=== PATIENT | male | born 1990 | race Caucasian/White ===

== ENCOUNTER 2019-03-19 01:36 | Emergency (ER) | payer SELFPAY ==
[~2019-03-19] VITALS: Ht 177.8 cm; Wt 99.8 kg
[2019-03-19 01:40] VITALS: BP 138/80
--- NOTE | 2019-03-19 01:40 | NUR ---
TO BED # 08 AMBULATORY
--- NOTE | 2019-03-19 01:40 | NUR ---
29 Y/O MALE PRESENTS TO ED WITH C/O LEFT LOWER JAW MOLAR PAIN, 8/10 X3 DAYS. PT STATES HE CANNOT TAKE THE PAIN ANY LONGER. HE USED OROGEL TO REDUCE PAIN BUT PAIN UNRELIEVED. AFEBRILE WITH VSS. INSIDE MOUTH, NO EDEMA, REDNESS, OR DRAINAGE NOTED. POSITIONED IN BED FOR COMFORT. ER MD AWARE. CONTINUE TO MONITOR.
--- NOTE | 2019-03-19 01:48 | NUR ---
Dr. Hsu examining patient.
[2019-03-19] MEDS ORDERED: AMOXICILLIN 500 MG CAP PO ONE (01:50)
[2019-03-19] MEDS ORDERED: KETOROLAC 60 MG/2 ML VIAL IM ONE (01:50)
[2019-03-19 02:41] VITALS: BP 138/80
--- NOTE | 2019-03-19 02:41 | NUR ---
DISCHARGE PAPERS GIVEN TO PT. PT STATES PAIN RELIEVED. RX OF AMOXICILLIN, TRAMADOL, AND MOTRIN GIVEN. SIDE EFFECTS EXPLAINED. INSTRUCTED TO F/U WITH DENTIST AND WHEN TO RETURN TO ER. PT VERBALLIZED UNDERSTANDING OF DC INSTRUCTIONS. ALL QUESTIONS ANSWERED.
== END 2019-03-19 02:41 | disposition home or self-care (01) ==
LOC: MED 01:36
DX: K04.7 Periapical abscess without sinus (principal)
CPT/HCPCS: 96372; 99283; J1885

== ENCOUNTER 2019-04-13 06:24 | Emergency (ER) | payer SELFPAY ==
[~2019-04-13] VITALS: Ht 172.7 cm; Wt 90.7 kg
--- NOTE | 2019-04-13 06:29 | NUR ---
PT AMBULATED TO BED #2
[2019-04-13 06:32] VITALS: BP 143/78
--- NOTE | 2019-04-13 06:40 | NUR ---
29 YO M BIB SELF PRESENTS TO ED C/O 07/12 RIGHT LOWER MOLAR PAIN X 4 DAYS. PT STATES HE WENT TO DENTIST AND WAS TOLD TOOTH NEEDS TO BE EXTRACTED. PT HAS APPOINTMENT ON TUESDAY BUT CANNOT CONTROL THE PAIN AT HOME. -- PT AWAKE, ALERT, CALM, COOPERATIVE. ANSWERS QUESTIONS APPROPRIATELY. BEHAVIOR AGE APPROPRIATE. -- SKIN WARM, DRY, INTACT. BREATHING EVEN, UNLABORED. PMH-- DENIES RX-- IBUPROFEN X 1 HOUR AGO
--- NOTE | 2019-04-13 07:08 | NUR ---
REPORT GIVEN TO ANGELITO KRISHNAN. TRANSFER OF CARE AT THIS TIME.
--- NOTE | 2019-04-13 07:10 | NUR ---
RECEIVED REPORT FROM PACKER DRIED BEEF RN. PT ELADIA IN BED. A/O X4. BREATHING NORMALLY. VSS. STATES TOOTHACHE OF 07/12.
--- NOTE | 2019-04-13 07:40 | NUR ---
Dr. Najera evaluating patient at bedside.
[2019-04-13] MEDS ORDERED: KETOROLAC 60 MG/2 ML VIAL IM ONE (07:45)
[2019-04-13 08:21] VITALS: BP 134/81
--- NOTE | 2019-04-13 08:21 | NUR ---
DISCHARGE INSTRUTIONS PROVIDED BY [facility].
== END 2019-04-13 08:21 | disposition home or self-care (01) ==
LOC: MED 06:24
DX: K08.89 Other specified disorders of teeth and supporting structures (principal)
CPT/HCPCS: 96372; 99283; J1885

== ENCOUNTER 2023-05-27 11:20 | Emergency (ER) | payer SELFPAY ==
[~2023-05-27] VITALS: Ht 180.3 cm; Wt 103.4 kg
[2023-05-27 11:26] VITALS: BP 114/82; PULSE 95; RESP 18; TEMP 97.7; O2SAT 99
[2023-05-27 11:58] LABS: BASOPHILS # (AUTO) 0.1 K/uL (0.00-0.22); BASOPHILS % (AUTO) 0.7 % (0.0-2.0); EOSINOPHILS % (AUTO) 0.1 % (0.0-4.0); HEMATOCRIT 28.1 % (36-52); HEMOGLOBIN 8.4 g/dL (12.0-18.0); LYMPHOCYTES # (AUTO) 1.3 K/uL (2.0-11.5); LYMPHOCYTES % (AUTO) 14.6 % (20.5-51.1); MEAN CORPUSCULAR HEMOGLOBIN 18 pg (27-31); MEAN CORPUSCULAR HGB CONC 30 g/dL (33-37); MEAN CORPUSCULAR VOLUME 61.3 fL (80-94); MONOCYTES # (AUTO) 0.5 K/uL (0.8-1.0); MONOCYTES % (AUTO) 5.9 % (1.7-9.3); NEUTROPHILS # (AUTO) 7.2 K/uL (1.8-7.7); NEUTROPHILS % (AUTO) 78.7 % (42.2-75.2); PLATELET COUNT (AUTO) 444 K/uL (140-450); RED BLOOD CELL COUNT(AUTO) 4.58 MIL/uL (4.20-6.10); RED CELL DISTRIBUTION WIDTH 19.1 % (11.6-13.7); WHITE BLOOD COUNT (AUTO) 9.2 K/uL (4.8-10.8)
[2023-05-27 12:16] LABS: ANION GAP 12.3 (8-16); CALCIUM 9.1 mg/dL (8.5-10.1); CARBON DIOXIDE 27.1 mmol/L (21-32); POTASSIUM 4.4 mmol/L (3.5-5.1)
[2023-05-27] MEDS ORDERED: DOCU-299 PO (13:42)
[2023-05-27 13:45] VITALS: BP 112/82; PULSE 88; RESP 18; TEMP 98; O2SAT 99
== END 2023-05-27 13:45 | disposition home or self-care (01) ==
LOC: MED 11:20
DX: K62.5 Hemorrhage of anus and rectum (principal); Z79.899 Other long term (current) drug therapy
CPT/HCPCS: 36415; 80048; 85025; 99283